=== PATIENT | female | born 1990 | race Caucasian/White ===

== ENCOUNTER 2016-07-26 17:49 | Emergency (ER) | payer SELFPAY ==
--- NOTE | 2016-08-01 21:34 | ER ---
ADMIT: 07/26/2016 RM/LOC: ER [facility] MR#: [id number] [address] [id number] GONZALEZ HAMMOND [place] [address] [place] [address] Emergency Room Report SEX: F AGE: 26 : 1990 DATE: 07/26/2016 This 26-year-old who ran out of her Lamictal 2 days prior to her emergency room visit. She comes with complaint of "not feeling right." She thinks it is secondary to not having her Lamictal. She is scheduled to see her [facility] counselor tomorrow and was told she would have the prescription rewritten for her tomorrow for her Lamictal. See T sheet for history and physical. DIAGNOSES: 1. Medication refill. 2. Bipolar disorder. Duc Sandoval MD/ laurie JOB #: [id number] CC: Duc Sandoval MD, Attending Physician Mamadou Moreno NP, Family Physician
== END 2016-07-26 18:00 | disposition home or self-care (01) ==
LOC: ER 17:49
DX: Z76.0 Encounter for issue of repeat prescription (principal); F31.9 Bipolar disorder, unspecified; F17.210 Nicotine dependence, cigarettes, uncomplicated; Z79.899 Other long term (current) drug therapy